=== PATIENT | male | born 1995 | race Caucasian/White ===

== ENCOUNTER 2019-06-20 21:14 | Emergency (ER) | payer BC ==
[~2019-06-20] VITALS: Ht 170.2 cm; Wt 88.5 kg
[2019-06-20 21:30] VITALS: BP 168/104
--- NOTE | 2019-06-20 21:30 | NUR ---
patient ambulated to ed c/o cp x 2 hours. patient recently seen at [facility] for same reason x2 days ago. patient reports taking DXM. VSS
[2019-06-20] MEDS ORDERED: BUSPAR10 MG ORAL (21:32)
[2019-06-20] MEDS ORDERED: ABILIFY20 MG ORAL (21:32)
[2019-06-20] MEDS ORDERED: PROPRANOLOL HCL20 MG ORAL (21:32)
--- NOTE | 2019-06-20 22:04 | Emergency Room Report ---
History of Present Illness General Chief Complaint: Chest Pain Source: Patient Present Illness HPI 24-year-old male presents with atypical sharp pain central aggravated with movement alleviated with rest severity is mild, no dyspnea on exertion no nausea no vomiting no diaphoresis, patient was evaluated at [facility] 2 days ago, and was cleared and discharged, he states he lives in a retirement house and wants something to take with the pain. Allergies: Coded Allergies: No Known Allergies (Unverified , 06/20/19) Patient History Past Medical History: see triage record Social History: Reports: smoking, drug use - Dextromethorphan Reviewed Nursing Documentation: PMH: Agreed; PSxH: Agreed Nursing Documentation-PMH Past Medical History: No History, Except For Hx Hypertension: Yes Review of Systems All Other Systems: negative except mentioned in HPI Physical Exam Vital Signs Date Time Temp Pulse Resp B/P (MAP) Pulse Ox O2 Delivery O2 Flow Rate FiO2 06/20/19 21:27 98.1 94 14 168/104 (125) 96 Room Air Sp02 EP Interpretation: reviewed, normal General Appearance: well appearing, no apparent distress, alert, other - in bed comfortable, with suitcase Head: normocephalic, atraumatic Eyes: bilateral eye PERRL, bilateral eye EOMI ENT: uvula midline, moist mucus membranes Neck: supple, thyroid normal, supple/symm/no masses Respiratory: lungs clear, no respiratory distress, no retraction, no accessory muscle use Cardiovascular #1: normal peripheral pulses, regular rate, rhythm, no edema, no gallop, no murmur Gastrointestinal: non tender, soft, no guarding, no rebound Musculoskeletal: normal inspection Neurologic: alert, oriented x3 Psychiatric: mood/affect normal Skin: no rash, warm/dry Medical Decision Making Diagnostic Impression: Primary Impression: Chest pain Qualified Codes: R07.9 - Chest pain, unspecified ER Course 24-year-old male presents with reproducible chest pain, low suspicion for ACS, low suspicion for pneumonia, chest x-ray negative, EKG negative, patient is sleeping comfortably in bed patient was already evaluated at a tertiary care facility with a completely negative work-up patient is requesting pain medication. Will provide patient with Toradol, viscous lidocaine, Tylenol Disposition home with return precautions EKG Diagnostic Results EKG Time: 21:38 EP Interpretation: NSR, rate 91, QTc 425, no acute ST elevations, normal axis Chest X-Ray Diagnostic Results Chest X-Ray Diagnostic Results : Chest X-Ray Ordered: Yes # of Views/Limited/Complete: 1 View Indication: Chest Pain EP Interpretation: Yes Interpretation: no consolidation, no effusion, no pneumothorax, no acute cardiopulmonary disease Impression: No acute disease Electronically Signed by: Manjinder Avendaño MD Last Vital Signs Date Time Temp Pulse Resp B/P (MAP) Pulse Ox O2 Delivery O2 Flow Rate FiO2 06/20/19 21:27 98.1 94 14 168/104 (125) 96 Room Air Disposition: HOME, SELF-CARE Condition: Stable Scripts Naproxen* (NAPROSYN*) 250 Mg Tablet 250 MG ORAL BID PRN for For Pain, #20 TAB 0 Refills Prov: Manjinder Avendaño MD 06/20/19 Referrals: [facility] Patient Instructions: Nonspecific Chest Pain Additional Instructions: The patient was provided with discharge instructions, notified to follow-up with a primary care doctor and or specialist in the next 24-48 hours, and to return to the ED if they have worsening of their symptoms. Please note that this report is being documented using [employer] technology. This can lead to erroneous entry secondary to incorrect interpretation by the dictating instrument. Manjinder Avendaño MD Jun 20, 2019 22:04
[2019-06-20] MEDS ORDERED: NAPROXEN250 MG ORAL (22:06)
[2019-06-20] MEDS ORDERED: Acetaminophen 500mg (ES) tab ORAL ONE (22:15)
[2019-06-20] MEDS ORDERED: Ketorolac 30mg Inj IM ONE (22:15)
[2019-06-20] MEDS ORDERED: Lidocaine 2% Visc 15ml soln ORAL ONE (22:15)
[2019-06-20 22:22] VITALS: BP 168/104
--- NOTE | 2019-06-20 22:22 | NUR ---
ER DISCHARGE NOTE: Patient is cleared to be discharged per ERMD, pt is aox4, on room air, with stable vital signs. pt was given dc and prescription instructions, pt was able to verbalize understanding, pt id band removed. pt is able to ambulate with steady gait. pt took all belongings.
--- NOTE | 2019-06-21 11:20 | Diagnostic Imaging Report ---
Indication: Dyspnea Comparison: None A single view chest radiograph was obtained. Findings: Cardiomediastinal appearance is within normal limits for age. The lungs are clear. Pulmonary vascularity is appropriate. The diaphragmatic contour is smooth and costophrenic angles are sharp. No pleural effusions are identified. The bones are unremarkable. Impression: No acute findings
--- NOTE | 2019-06-22 15:21 | Cardiology Report ---
APPROVED REPORT EKG Measurement Heart [id number] Normal sinus rhythm Minimal voltage criteria for LVH, may be normal variant Nonspecific T wave abnormality Abnormal ECG
== END 2019-06-20 22:22 | disposition home or self-care (01) ==
LOC: EMR 21:27
DX: R07.9 Chest pain, unspecified (principal); I10 Essential (primary) hypertension; F17.200 Nicotine dependence, unspecified, uncomplicated; F19.10 Other psychoactive substance abuse, uncomplicated
CPT/HCPCS: 71045; 80307; 93005; 96372; 99283; J1885